=== PATIENT | female | born 1975 | race Caucasian/White ===

== ENCOUNTER 2018-01-27 05:58 | Emergency (ER) | payer OTHER ==
[~2018-01-27] VITALS: Ht 170.2 cm; Wt 58.1 kg
[~2018-01-27 05:58] MED LIST: OXYACE5T PO
[2018-01-27] MEDS ORDERED: CIPR500 PO (06:31)
== END 2018-01-27 07:08 | disposition home or self-care (01) ==
LOC: ER 05:58
DX: S66.911A Strain of unspecified muscle, fascia and tendon at wrist and hand level, right hand, initial encounter (principal); W19.XXXA Unspecified fall, initial encounter; Z88.2 Allergy status to sulfonamides
CPT/HCPCS: 73110; 99283-25

== ENCOUNTER → 2025-01-10 | Outpatient (CLI) | payer BC ==
[~2025-01-10] MED LIST changes: +CIPR500 PO
== END | disposition home or self-care (01) ==
LOC: LAB 14:35 → LAB SHORT 14:35
DX: R30.0 Dysuria (principal)
CPT/HCPCS: 87086